=== PATIENT | female | born 1995 | race American Indian/Alaskan Native ===

== ENCOUNTER 2018-02-16 06:39 | Day surgery (SDC) | payer BC ==
[2018-02-16] MEDS ORDERED: WATER FOR IRRIG STERILE IR ONE (07:01)
[2018-02-16] MEDS ORDERED: XYLOCAINE 2% INFILTRATI ONE (07:44)
[2018-02-16] MEDS ORDERED: DIPRIVAN 10 MG/ML IV ONE ×3 (07:45→08:32)
[2018-02-16] MEDS: NACL 0.9% 1000 ML 1,000 ML IV SCH (07:54)
--- NOTE | 2018-02-16 08:45 | Procedure Note ---
Date of procedure: 02/16/18 Pre-op diagnosis: Epigastric pain Post-op diagnosis: other (Mild,Distal Esophagitis/ Mild to Moderate Hiatal Hernia/ Gastritis/ R/O Celiac Disease/ R/O Eosinophilic Esophagitis) Anesthesia: MAC Surgeon: KWESI BURGESS Estimated blood loss: minimal Pathology: list Specimen disposition: to lab Condition: stable Disposition: same day (Follow up in 1 to 2 weeks. Avoid aspirin and aspirin related products for 4 days.)
--- NOTE | 2018-02-16 08:50 | History and Physical Report ---
HISTORY OF PRESENT ILLNESS: This is a 22-year-old -[place] female who is in otherwise good health, who has lately been having some epigastric pain, radiating to her back in spite of being on PPI as well as GERD symptoms and esophagitis, which had prompted her to go to urgent care center. Since being on the PPI, her esophagitis has improved, but she still complains of the epigastric pain and discomfort and is to have an EGD done for further assessment. MEDICATIONS: She is on omeprazole. SOCIAL HISTORY: Denies history of smoking, but admits drinking alcohol, has been advised not to do so. REVIEW OF SYSTEMS: No cardiac issues. No flu shot. PHYSICAL EXAMINATION: VITAL SIGNS: She is afebrile. Blood pressure 142/95, pulse 120, height is 5 feet 2 inches, weight is 166. HEENT: Shows no JVD. LUNGS: Clear to auscultation. CARDIOVASCULAR: Normal. ABDOMEN: Soft with some epigastric tenderness radiating to the back as well as involving the right upper quadrant. EXTREMITIES: No pedal edema. NEUROLOGIC: The patient otherwise alert and oriented. ASSESSMENT AND PLAN: GERD symptoms, esophagitis, epigastric pain radiating to the back, peptic ulcer disease, family history of gallbladder disease. PLAN: To do an EGD at [facility] on 02/16/2018 and have the patient follow up once the EGD is done. JOB# [id number] ELMER/ITZEL
--- NOTE | 2018-02-16 08:59 | Operative Report ---
PROCEDURE: EGD with biopsy. INDICATIONS: This is a 22-year-old -[place] female in otherwise good health, who had presented to the office because of epigastric pain radiating to the back as well as GERD symptoms and symptom suspected of esophagitis. Procedure was done to make sure there was not any significant upper GI pathology. DESCRIPTION OF PROCEDURE: Procedure was done after getting informed consent with MAC anesthesia. Instrument was passed through the hypopharynx into the esophagus, which showed some mild distal esophagitis. Biopsy was done from the mid esophagus to rule out for eosinophilic esophagitis. Stomach showed a mild to moderate hiatal hernia on the retroverted view and some antral gastritis and a patent pylorus. Biopsy was done from the gastric antrum, the angle of incisura, and the gastric body to rule out for H. pylori and atrophic gastritis. The pylorus was patent. The duodenum in the first and second portion appeared normal. Biopsy was done from the second part to rule out for possible celiac disease. There was minimal bleeding from the biopsy sites and no complications associated with the procedure. ASSESSMENT: Epigastric pain. No obvious peptic ulcer disease noted. Mild distal esophagitis, mild to moderate hiatal hernia, rule out eosinophilic esophagitis, gastritis, rule out celiac disease. Again, there was minimal bleeding from the biopsy sites. No complications associated with the procedure. Nurse, Leslie Contreras, was in the room throughout the entirety of the procedure. The patient is to be treated with continued use of the proton pump inhibitor. Will also be encouraged to take probiotics and will be given Bentyl to be taken on a p.r.n. basis. Liver function tests will be checked and ultrasound of the gallbladder will be done as an outpatient since the patient has a family history of gallbladder disease. JOB# [id number] ELMER/ITZEL HERNANDEZ
[2018-02-16 09:14] VITALS: BP 109/65
[2018-02-16 09:24] LABS: Basophils % (Auto) 0.4 % (0.0-1.8); Eosinophils % (Auto) 0.9 % (0.0-4.3); Hematocrit 37.4 % (30.3-42.9); Hemoglobin 12.7 gm/dl (10.1-14.3); Lymphocytes # (Auto) 1.3 K/mm3 (1.2-5.4); Lymphocytes % (Auto) 29.3 % (13.4-35.0); Mean Corpuscular HGB Conc 34 % (30-34); Mean Corpuscular Hemoglobin 31 pg (28-32); Mean Corpuscular Volume 91 fl (79-97); Monocytes # (Auto) 0.6 K/mm3 (0.0-0.8); Monocytes % (Auto) 14.7 % (0.0-7.3); Platelet Count 259 K/mm3 (140-440)
[2018-02-16 09:38] LABS: Alanine Aminotransferase 8 units/L (7-56); Albumin 4.5 g/dL (3.9-5)
[2018-02-16 09:40] LABS: Bilirubin,Direct < 0.2 mg/dL (0-0.2)
== END 2018-02-16 06:40 | disposition home or self-care (01) ==
LOC: GIO 06:39
DX: K20.9 Esophagitis, unspecified (principal); K29.70 Gastritis, unspecified, without bleeding; K44.9 Diaphragmatic hernia without obstruction or gangrene; K27.9 Peptic ulcer, site unspecified, unspecified as acute or chronic, without hemorrhage or perforation; Z79.899 Other long term (current) drug therapy; Z72.89 Other problems related to lifestyle
CPT/HCPCS: 36415; 80074; 81025; 85025; 88305; 88342; J2704; J7030

== ENCOUNTER 2018-02-17 04:50 | Emergency (ER) | payer SELFPAY ==
[2018-02-17 05:14] VITALS: BP 132/86
[2018-02-17] MEDS ORDERED: NACL 0.9% 1000 ML 1,000 ML IV ONE (05:20)
[2018-02-17 06:26] LABS: Hematocrit 42.3 % (30.3-42.9); Hemoglobin 14.1 gm/dl (10.1-14.3); Mean Corpuscular HGB Conc 33 % (30-34); Mean Corpuscular Hemoglobin 31 pg (28-32); Mean Corpuscular Volume 92 fl (79-97); Red Cell Distribution Width 13.2 % (13.2-15.2)
[2018-02-17 06:41] LABS: Platelet Count 107 K/mm3 (140-440)
[2018-02-17 06:53] LABS: Bilirubin,Urine NEG (Negative); Blood,Urine NEG (Negative); Color,Urine Yellow (Yellow); Mucus,Urine 2+ /HPF; Urobilinogen,Urine < 2.0 mg/dL (<2.0)
[2018-02-17 08:51] LABS: Basophils % (Manual) 0 % (0.0-1.8); Eosinophils % (Manual) 0 % (0.0-4.3); Total Cells Counted 100
[2018-02-17 09:00] LABS: Platelet Estimate Consistent w Auto
== END 2018-02-17 07:02 ==
LOC: ED 04:50
DX: R10.13 Epigastric pain (principal); Z53.21 Procedure and treatment not carried out due to patient leaving prior to being seen by health care provider
CPT/HCPCS: 36415; 81001; 84703; 85007; 85025